=== PATIENT | male | born 1970 | race Caucasian/White ===

== ENCOUNTER 2017-03-06 17:37 | Emergency (ER) | payer OTHER, MEDICARE | END 2017-03-06 22:50 | disposition home or self-care (01) | LOC: ER1 17:37 | DX: S16.1XXA Strain of muscle, fascia and tendon at neck level, initial encounter (principal); S46.912A Strain of unspecified muscle, fascia and tendon at shoulder and upper arm level, left arm, initial encounter; R51 Headache; E11.9 Type 2 diabetes mellitus without complications; I10 Essential (primary) hypertension; E78.5 Hyperlipidemia, unspecified; V43.52XA Car driver injured in collision with other type car in traffic accident, initial encounter; Y93.89 Activity, other specified; Y92.410 Unspecified street and highway as the place of occurrence of the external cause | CPT/HCPCS: 70450; 72125; 73030; 96372; 99284; J1885 ==